=== PATIENT | female | born 1955 | race Caucasian/White ===

== ENCOUNTER 2024-07-14 11:36 | Emergency (ER) | payer OTHER, MEDICARE, SELFPAY ==
--- NOTE | ~2024-07-14 | XR_ITS ---
EXAMINATION: XR wrist LT min 3V DATE: 07/14/2024 12:12 INDICATION: Left wrist injury and pain. TECHNIQUE: 4 views of left wrist were obtained. COMPARISON: None. FINDINGS: There is a transverse fracture deformity of distal radial metaphysis. The distal fracture f ragment demonstrates impaction and dorsal angulation. There is 3 degrees palmar tilt of the distal ar ticular surface. There is chronic deformity of ulnar styloid. There is moderate osteoarthritis of fir st carpometacarpal joint. IMPRESSION: 1. Fracture deformity of distal radius, which may be chronic or [id number]. 2. Moderate osteoarthritis of first carpometacarpal joint. Reviewed, dictated and finalized at location A. UNT MANAGER IMPRESSION: 1. Fracture deformity of distal radius, which may be chronic or [id number] c. 2. Moderate osteoarthritis of first carpometacarpal joint.
--- NOTE | 2024-07-14 11:42 | ED_ITS ---
HPI - Fall General Chief Complaint: Fall Stated Complaint: FALL Time Seen by Provider: 07/14/24 11:42 Source: patient Mode of arrival: ambulatory Limitations: no limitations History of Present Illness HPI Narrative: Rox is a 69-year-old female patient presenting to the clinic today with complaints of a fall this morning when she slipped on black ice.. She reports she did not hit her head or losing consciousness. States that she put her left hand behind her to brace her fall and hyperextended the left wrist. Is having pain to the left proximal hand, left volar wrist, and left distal forearm. Bruising and swelling noted. Patient is on a blood thinner. Related Data Home Medications ?Medication ?Instructions ?Recorded ?Confirmed ?Last Taken ?Type aspirin 81 mg tablet,delayed mg 07/14/24 Unknown History release dapagliflozin propaned 10 PO 07/14/24 Unknown History mg-metformin ER 1,000 mg tablet,ext rel 24hr (Xigduo XR) evolocumab 140 mg/mL subcutaneous mg subcut 07/14/24 Unknown History pen injector (Opal Caceres) levothyroxine 125 mcg tablet mcg 07/14/24 Unknown History lisinopril 2.5 mg tablet mg 07/14/24 Unknown History metoprolol succinate 25 mg mg PO 07/14/24 Unknown History tablet,extended release 24 hr nitroglycerin 0.4 mg sublingual mg 07/14/24 Unknown History tablet rivaroxaban 2.5 mg tablet (Xarelto) mg 07/14/24 Unknown History semaglutide 1 mg/dose (4 mg/3 mL) mg subcut 07/14/24 Unknown History subcutaneous pen injector (Ozempic) Allergies Allergy/AdvReac Type Severity Reaction Status Date / Time isosorbide AdvReac Intermediate Weakness Verified 07/14/24 12:04 [id number] Reductase AdvReac Intermediate Weakness Verified 07/14/24 12:04 Inhibitor Review of Systems Review of Systems: Pertinent positives per HPI. Patient denies any fever, chills, rash, headache, visual changes, dizziness, cough, runny nose, sore throat, shortness of breath, chest pain, palpitations, nausea, vomiting, diarrhea, constipation, abdominal pain, or any urinary issues. PMFSH Comments At the time of my signature, I reviewed and agree with the nursing past medical, surgical, social, and family history. There is no relevant family history pertinent to the patient complaint. Exam Narrative: General: Well-developed, well nourished, in no apparent distress Head: Normocephalic, atraumatic. Cardio: Regular rate and rhythm, s1 and s2 normal, no murmur appreciated. Resp: Clear to auscultation bilaterally, no rhonchi, rales, wheezing or rubs. Musculoskeletal: No deformity, bruising and swelling over the left volar distal forearm, wrist, and to the left palm, tender to palpation, limited range of motion of the hand, wrist, forearm due to pain, pain with supination and pronation to the left wrist, muscle strength strong and equal, peripheral pulse strong, no cyanosis, normal gait and station Course Course Emergency Course: Portions of this record may have been created with voice recognition software. Level of Care: Express Care Visit Vital Signs Vital signs: Vital Signs Temperature 36.9 C 07/14/24 11:51 Pulse Rate 70 07/14/24 11:51 Respiratory Rate 16 07/14/24 11:51 Blood Pressure 148/82 H 07/14/24 11:51 Pulse Oximetry 98 07/14/24 11:51 Oxygen Delivery Room Air 07/14/24 11:51 Temperature 36.9 C 07/14/24 11:51 Pulse Rate 70 07/14/24 11:51 Respiratory Rate 16 07/14/24 11:51 Blood Pressure 148/82 H 07/14/24 11:51 Pulse Oximetry 98 07/14/24 11:51 Oxygen Delivery Room Air 07/14/24 11:51 Vital signs reviewed MDM - Fall MDM Narrative Medical decision making narrative: At the time of visit patient is resting comfortably on the exam table. Patient appears to be nontoxic. Diagnostics: X-ray of the left wrist was performed and shows a close transverse impacted fracture with a 3 mm relation to the distal left radius. Plan: Patient has a left distal radius fracture. Volar OCL splint was applied and arm sling was given. Will give the patient hydrocodone as needed for moderate to severe pain. Dr. Henderson-orthopedic provider information was given to the patient. Patient also has orthopedic provider Dr. Gusman that she is wanting to follow-up with. Supportive measures were discussed with the patient and they voiced understanding discharge instructions and agrees to treatment plan. Return precautions reviewed Differential Diagnosis Differential diagnosis: Likely other (Wrist fracture, ground level fall, wrist sprain, hand sprain, forearm contusion, soft tissue injury) Discharge Plan Discharge Clinical Impression: Distal radial fracture Qualifiers: Encounter type: initial encounter Fracture type: closed Fracture morphology: other fracture Laterality: left Qualified Code(s): S52.592A - Other fractures of lower end of left radius, initial encounter for closed fracture Patient Disposition: Home, Self-Care Condition: Stable Instructions: Antibiotic Form, Wrist Fracture in Adults (ED) Additional Instructions: X-ray shows a close distal radius fracture with impaction/3 mm angulation. Rest, ice, elevate, and wear volar wrist splint and arm sling as directed Watch for signs and symptoms of compartment syndrome-increase in pain, swelling, decreased feeling in your fingers, fingers feeling cold, cyanosis, or decreased pulse. If this occurs go to the emergency room immediately Tylenol/motrin for pain as discussed. May take hydrocodone for moderate to severe pain-this medication has Tylenol in it No running or sports until healed. Follow up with your PCP if symptoms persist more than 1 week. Follow-up with Dr. Gusman-orthopedic doctor-call Tuesday to schedule appointment May also follow-up with Dr. Henderson-orthopedic doctor if you cannot get into your orthopedic doctor Patient Language: Portuguese Prescriptions: New hydrocodone-acetaminophen 5-325 mg tablet 1 tablet PO Q6H PRN (Reason: pain) 3 Days Qty: 12 0RF No Action aspirin 81 mg tablet,delayed release (DR/EC) levothyroxine 125 mcg tablet nitroglycerin 0.4 mg tablet, sublingual metoprolol succinate 25 mg tablet extended release 24 hr PO lisinopril 2.5 mg tablet dapaglifloz propaned-metformin [Xigduo XR] 10-1,000 mg tablet, IR - ER, biphasic 24hr PO Xarelto 2.5 mg tablet Repatha SureClick 140 mg/mL pen injector SUBCUT Ozempic 1 mg/dose (4 mg/3 mL) pen injector SUBCUT Follow-up/Referrals: Manjit Henderson MD [Physician] - (Closed distal radial transverse impacted fracture with 3 mm angulation.) Time of Disposition: 12:42 Quality NIHSS Nursing Documentation ED NIHSS nursing documentation: reviewed/agree
[2024-07-14 11:51] VITALS: BP 148/82; PULSE 70; RESP 16; TEMP 36.9; O2SAT 98
== END 2024-07-14 12:55 | disposition home or self-care (01) ==
PROVIDERS: Emergency Provider Nurse Practitioner Family
DX: S52.592A Other fractures of lower end of left radius, initial encounter for closed fracture (principal); W00.0XXA Fall on same level due to ice and snow, initial encounter; I10 Essential (primary) hypertension; E78.00 Pure hypercholesterolemia, unspecified; E03.9 Hypothyroidism, unspecified; Z96.653 Presence of artificial knee joint, bilateral; Z96.641 Presence of right artificial hip joint; Z90.89 Acquired absence of other organs
CPT/HCPCS: 29125; 73110; 99204; A4565; G0463